=== PATIENT | male | born 1975 | race Caucasian/White ===

== ENCOUNTER 2018-03-06 22:00 | Emergency (ER) | payer SELFPAY ==
[~2018-03-06] VITALS: Ht 167.6 cm; Wt 83.7 kg
[2018-03-06 22:04] VITALS: Ht 167.6 cm; Wt 83.7 kg
[2018-03-07] MEDS ORDERED: DIPHTH/TET/ACEL PERTUSS (ADULT) 0.5 ML VIAL IM* ONE (01:30)
[2018-03-07] MEDS ORDERED: CEFAZOLIN 1 GM INJ IM ONE (01:30)
[2018-03-07] MEDS ORDERED: HYDROCODONE/APAP (5/325) TAB PO ONE (01:30)
[2018-03-07] MEDS ORDERED: HYDR-4011 PO (03:00)
[2018-03-07] MEDS ORDERED: CEPH-443 PO (03:00)
[2018-03-07] MEDS ORDERED: IBUP-1542 PO (03:00)
--- NOTE | 2018-03-07 03:16 | ERD ---
ER Documentation Chief Complaint Chief Complaint puncture wound left hand, working with screwdriver about 30 minutes ago HPI 42-year-old male patient with no significant past medical history presents to the ED, right-handed with a puncture wound to his left hand. Patient reports that he was working with a screwdriver at 8 PM. States that he still has sensation intact. Full range of motion. Denies any fever, chills, nausea, vomiting, diarrhea, neck stiffness. Patient reports that he is unsure of the exact date of his tetanus vaccine. ROS All systems reviewed and are negative except as per history of present illness. Medications Home Meds Active Scripts Hydrocodone/Acetaminophen (Hancock 5-325 Tablet) 1 Each Tablet, 1 TAB PO QHS PRN for PAIN, #5 TAB Prov:SID CAICEDO PA-C 03/07/18 Ibuprofen* (Motrin*) 600 Mg Tab, 600 MG PO Q6, #30 TAB Prov:SID CAICEDO PA-C 03/07/18 Cephalexin* (Keflex*) 500 Mg Capsule, 500 MG PO QID for 7 Days, CAP Prov:SID CAICEDO PA-C 03/07/18 Allergies Allergies: Coded Allergies: No Known Drug Allergies (Verified Allergy, Unknown, 03/06/18) PMhx/Soc Medical and Surgical Hx: pt denies Medical Hx, pt denies Surgical Hx Hx Alcohol Use: Yes Hx Substance Use: No Hx Tobacco Use: No Smoking Status: Never smoker FmHx Family History: No diabetes, No coronary disease Physical Exam Vitals Vital Signs Date Temp Pulse Resp B/P (MAP) Pulse Ox O2 O2 Flow FiO2 Time Delivery Rate 03/07/18 98.0 69 18 108/67 100 Room Air 03:19 (81) 03/06/18 97.9 84 18 131/62 99 22:04 (85) Physical Exam Const: Sxt-rjv-emeemlieh, well-nourished. In no acute distress. Head: Atraumatic, normocephalic Eyes: Normal Conjunctiva without injection ENT: Normal external ear, nose and mouth. Neck: Full range of motion. No meningismus. Resp: Clear to auscultation bilaterally. No wheezing, rhonchi, rales, or crackles. No accessory muscle use. No retractions. Cardio: Regular rate and rhythm, no murmurs Skin: No petechiae or rashes Back: No midline tenderness. No CVA tenderness. Ext: No cyanosis, or edema. Cap refill less than 2 seconds. Distal pulses intact bilaterally. 2 mm puncture wound noted on the palmar aspect of patient's left hand. No erythema, edema. No hemorrhaging noted. No visualization of any bony prominences. No visualization of any tendon ligaments. Neur: Awake and alert. Normal gait and coordination. Muscle strength 5/5. Sensation intact bilaterally. Psych: Normal Mood and Affect Results 24 hrs Current Medications Medications Dose Sig/Prosper Start Time Status Last (Trade) Ordered Route PRN Stop Time Admin Dose Reason Admin Diphtheria/ 0.5 ml ONCE ONCE 03/07/18 DC 03/07/18 Tetanus/Acell IM* 01:30 01:24 Pertussis 03/07/18 01:31 (Adacel) 1 tab ONCE ONCE 03/07/18 DC 03/07/18 Acetaminophen PO 01:30 01:23 / 03/07/18 01:31 Hydrocodone Bitart (Hancock (5/325)) Cefazolin 1 gm ONCE ONCE 03/07/18 DC 03/07/18 Sodium IM 01:30 01:23 (Ancef) 03/07/18 01:31 Procedures/MDM 42-year-old male patient with no significant past medical history presents to ED complaining of left hand wound injury. Patient is afebrile and nontoxic- appearing. A left hand x-ray was ordered to further evaluate patient. Patient's Tdap updated. Ancef 1 g administered to patient. IMPRESSION: No acute findings. Patient has a puncture wound. No indication for suture placement at this time. Well healing. Patient will be treated on an outpatient basis with antibiotics and to return for any increased redness, swelling, purulent discharge, etc. Patient's extremity symptoms have stabilized while they have been evaluated in the department and are appropriate for outpatient follow up. No evidence of fractures, dislocations, compartment syndrome, neurologic injury, vascular injury, open joint, open fracture, tendon laceration, septic arthritis, osteomyelitis, DVT, foreign body, or other emergent conditions. Diagnosis: Puncture Wound Discharge medications: Hancock, Ibuprofen, Keflex Follow up with primary care physician in 1-2 days. Instructed patient to return to the ED sooner for any worsening symptoms. Patient's questions were answered. Patient is hemodynamically stable. Patient understood and agreed with discharge plan. Patient discharged stable. Disclaimer: Inadvertent spelling and grammatical errors are likely due to EHR/dictation software use and do not reflect on the overall quality of patient care. Also, please note that the electronic time recorded on this note does not necessarily reflect the actual time of the patient encounter. Departure Diagnosis: Primary Impression: Laceration Condition: Stable Patient Instructions: Puncture Wound, General Referrals: [facility] YOU HAVE RECEIVED A MEDICAL SCREENING EXAM AND THE RESULTS INDICATE THAT YOU DO NOT HAVE A CONDITION THAT REQUIRES URGENT TREATMENT IN THE EMERGENCY DEPARTMENT. FURTHER EVALUATION AND TREATMENT OF YOUR CONDITION CAN WAIT UNTIL YOU ARE SEEN IN YOUR DOCTORS OFFICE WITHIN THE NEXT 1-2 DAYS. IT IS YOUR RESPONSIBILITY TO MAKE AN APPOINTMENT FOR FOLOW-UP CARE. IF YOU HAVE A PRIMARY DOCTOR --you should call your primary doctor and schedule an appointment IF YOU DO NOT HAVE A PRIMARY DOCTOR YOU CAN CALL OUR PHYSICIAN REFERRAL HOTLINE AT IF YOU CAN NOT AFFORD TO SEE A PHYSICIAN YOU CAN CHOSE FROM THE FOLLOW[facility] [address] [facility] [address] [facility] [facility] [address] [facility] [address] [facility] [address] [facility]. [facility]. [address] [facility]. [facility] YOU HAVE RECEIVED A MEDICAL SCREENING EXAM AND THE RESULTS INDICATE THAT YOU DO NOT HAVE A CONDITION THAT REQUIRES URGENT TREATMENT IN THE EMERGENCY DEPARTMENT. FURTHER EVALUATION AND TREATMENT OF YOUR CONDITION CAN WAIT UNTIL YOU ARE SEEN IN YOUR DOCTORS OFFICE WITHIN THE NEXT 1-2 DAYS. IT IS YOUR RESPONSIBILITY TO MAKE AN APPOINTMENT FOR FOLOW-UP CARE. IF YOU HAVE A PRIMARY DOCTOR --you should call your primary doctor and schedule and appointment IF YOU DO NOT HAVE A PRIMARY DOCTOR YOU CAN CALL OUR PHYSICIAN REFERRAL HOTLINE AT . IF YOU CAN NOT AFFORD TO SEE A PHYSICIAN YOU CAN CHOSE FROM THE FOLLOWING [facility]: [facility] [address] [place] [address] [facility] [address] [place] [address] [facility] [address] [place] [address] [facility] URGENT CARE/SPECIALTIES Additional Instructions: Llame al doctor MAANA y linda mali ZOEY PARA DENTRO DE 2-3 STOREY.Dgale a la secretaria que nosotros le instruimos hacer esta zoey.Avise o llame si pereyra condicin se empeora antes de la zoey. Regresa aqui si peor o no mejor. WOUND CHECK:CONSULTE A PEREYRA MDICO EN 2 maradiaga para nessa PEREYRA HERIDA. SID CAICEDO PA-C Mar 07, 2018 03:16
[2018-03-07 03:19] VITALS: BP 108/67; PULSE 69; RESP 18
== END 2018-03-07 03:23 | disposition home or self-care (01) ==
LOC: FTE 22:00
DX: S61.432A Puncture wound without foreign body of left hand, initial encounter (principal); W26.8XXA Contact with other sharp object(s), not elsewhere classified, initial encounter; Y92.89 Other specified places as the place of occurrence of the external cause; Z23 Encounter for immunization
CPT/HCPCS: 73130; 90471; 90715; 96372; 99284; J0690

== ENCOUNTER 2018-04-09 19:31 | Emergency (ER) | payer MEDICAID ==
[~2018-04-09] VITALS: Ht 177.8 cm; Wt 85.8 kg
[~2018-04-09 19:31] MED LIST: CEPH-443 PO; HYDR-4011 PO; IBUP-1542 PO
[2018-04-09 19:39] VITALS: Ht 177.8 cm; Wt 85.8 kg
[2018-04-09] MEDS ORDERED: ACETAMINOPHEN 500 MG TAB PO STA (22:53)
[2018-04-09] MEDS ORDERED: KETOROLAC 30 MG INJ IM STA (22:53)
[2018-04-10] MEDS ORDERED: NAPR-985 PO (01:34)
--- NOTE | 2018-04-10 01:45 | ERD ---
ER Documentation Chief Complaint Chief Complaint fell while snow boarding yesterday, c/o left rib cage pain HPI 42 year-old [male] coming in today with Chief Complaint: Rib pain History of Present Illness: accompanying patient to the ER today with complaint of rib pain since yesterday. Patient reports snowboarding accident. Associated symptoms include pain with breathing and cough. Denies any other associated symptoms no respiratory distress. Denies at home use of medications for symptoms. Denies loss of consciousness. Review of systems: All systems were reviewed and are negative except for what is indicated in the history of present illness. Past Medical History: [Negative for hypertension, diabetes or other medical problems] Social History: [Patient denies tobacco, alcohol, elicit drug use] Medications: [None] Allergies: [NKDA] Social Concerns: Denies ROS All systems reviewed and are negative except as per history of present illness. Medications Home Meds Active Scripts Naproxen* (Naprosyn*) 500 Mg Tablet, 500 MG PO BID PRN for PAIN AND/OR INFLAMMATION, #30 TAB Prov:KRISTINA HILL NP 04/10/18 Hydrocodone/Acetaminophen (Russell 5-325 Tablet) 1 Each Tablet, 1 TAB PO QHS PRN for PAIN, #5 TAB Prov:SID CAICEDO PA-C 03/07/18 Ibuprofen* (Motrin*) 600 Mg Tab, 600 MG PO Q6, #30 TAB Prov:SID CAICEDO PA-C 03/07/18 Cephalexin* (Keflex*) 500 Mg Capsule, 500 MG PO QID for 7 Days, CAP Prov:SID CAICEDO PA-C 03/07/18 Allergies Allergies: Coded Allergies: No Known Drug Allergies (Verified Allergy, Unknown, 03/06/18) PMhx/Soc Medical and Surgical Hx: pt denies Medical Hx, pt denies Surgical Hx History of Surgery: No Anesthesia Reaction: No Hx Neurological Disorder: No Hx Respiratory Disorders: No Hx Cardiac Disorders: No Hx Psychiatric Problems: No Hx Miscellaneous Medical Probl: No Hx Alcohol Use: Yes Hx Substance Use: No Hx Tobacco Use: No Physical Exam Vitals Physical Exam Const: No acute distress Head: Atraumatic Eyes: Normal Conjunctiva ENT: Normal External Ears, Nose and Mouth. Neck: Full range of motion. No meningismus. Resp: Clear to auscultation bilaterally Cardio: Regular rate and rhythm, no murmurs Abd: Soft, non tender, non distended. Normal bowel sounds Skin: No petechiae or rashes Back: No midline or flank tenderness Ext: No cyanosis, or edema Neur: Awake and alert Psych: Normal Mood and Affect Results 24 hrs Current Medications Medications Dose Sig/Prosper Start Time Status Last (Trade) Ordered Route PRN Stop Time Admin Dose Reason Admin Ketorolac 30 mg ONCE STAT 04/09/18 DC 04/09/18 Tromethamine IM 22:53 23:00 (Toradol) 04/09/18 22:54 1,000 mg ONCE STAT 04/09/18 DC 04/09/18 Acetaminophen PO 22:53 23:00 (Tylenol 04/09/18 22:54 Tab) Procedures/MDM ED course includes a thorough examination and history. The course includes me dication; Toradol for inflammation and acetaminophen for pain Low suspicion for life-threatening medical emergency. Otherwise healthy patient presenting with constellation of symptoms likely representing uncomplicated rib contusion as characterized by history, physical exam findings [radiologic]. Negative chest x-ray. Negative rib x-ray No respiratory distress, otherwise relatively well appearing and nontoxic. Patient educated on diagnoses, prescriptions for Naprosyn, follow-up care, return precautions. Strict return precautions given for worsening condition; questions answered discharge. Disposition for discharge with followup in 2-3 days with PCP/clinic. Departure Diagnosis: Primary Impression: Contusion of rib on left side Encounter type: initial encounter Qualified Codes: S20.212A - Contusion of left front wall of thorax, initial encounter Condition: Stable Patient Instructions: Rib Contusion [facility] Usted se obrien hecho un examen mdico de control que le indica que no est en mali condicin que requiera tratamiento urgente en el Departamento de Emergencia. Un estudio ms profundo y el tratamiento de el condicin pueden esperar sin ningn riesgo hasta que usted sea atendida/o en el consultorio de el mdico o mali clnica. Es responsabilidad suya arreglar mali krys para el seguimiento del annabel. MANEJO DE CONDICIONES NO URGENTES EN EL FUTURO 1) Si usted tiene un mdico de atencin primaria: Usted debera llamar a el mdico de atencin primaria antes de venir al departamento de emergencia. Despus de las horas de consultorio, el doctor o el asociado/a est disponible por telfono. El mdico o enfermero de mary en el servicio telefnico puede asesorarle por ann-marie medio para atender el problema, o annabel contrario se puede programar mali krys. 2) Si usted no tiene un mdico de atencin primaria: Llame al mdico o clnica de referencia que aparece abajo adali las horas de consultorio para hacer mali krys para que le vean. CLINICAS: [facility] [phone] [facility] [phone] [address] [facility] [phone] [address] [facility] [facility] [phone] [address] [facility] [place] [place] [id number] [phone] [facility]. [phone] [address] [facility]. [facility] () Usted se obrien hecho un examen mdico de control que le indica que no est en mali condicin que requiera tratamiento urgente en el Departamento de Emergencia. Un estudio ms profundo y el tratamiento de el condicin pueden esperar sin ningn riesgo hasta que usted sea atendida/o en el consultorio de el mdico o mali clnica. Es responsabilidad suya arreglar mali krys para el seguimiento del annabel. MANEJO DE CONDICIONES NO URGENTES EN EL FUTURO 1) Si usted tiene un mdico de atencin primaria: Usted debera llamar a el mdico de atencin primaria antes de venir al departamento de emergencia. Despus de las horas de consultorio, el doctor o el asociado/a est disponible por telfono. El mdico o enfermero de mary en el servicio telefnico puede asesorarle por ann-marie medio para atender el problema, o annabel contrario se puede programar mali krys. 2) Si usted no tiene un mdico de atencin primaria: Llame al mdico o condado institucions de referencia que aparece abajo adali las horas de consultorio para hacer mali krys para que le vean. SI USTED NO PUEDE PAGAR PARA RIAN UN MEDICO puede ir a: [facility] [address] [place] [address] [facility] [address] [place], [place] [id number] [place] [address] Network [address] [place] [address] [facility] [facility] [address] [place] [address] Additional Instructions: Call your primary care doctor TOMORROW for an appointment during the next 2-3 days.See the doctor sooner or return here if your condition worsens before your appointment time. Return to hospital if signs of increased pain, chest pain, palpitations, respiratory distress. KRISTINA HILL NP Apr 10, 2018 01:45
[2018-04-10 01:46] VITALS: BP 106/65; PULSE 66; RESP 16
--- NOTE | 2018-04-10 02:13 | ERD ---
ER Documentation Chief Complaint Chief Complaint fell while snow boarding yesterday, c/o left rib cage pain HPI 42 year-old [male] coming in today with Chief Complaint: Rib pain History of Present Illness: accompanying patient to the ER today with complaint of rib pain since yesterday. Patient reports snowboarding accident. Associated symptoms include pain with breathing and cough. Denies any other associated symptoms no respiratory distress. Denies at home use of medications for symptoms. Denies loss of consciousness. Review of systems: All systems were reviewed and are negative except for what is indicated in the history of present illness. Past Medical History: [Negative for hypertension, diabetes or other medical problems] Social History: [Patient denies tobacco, alcohol, elicit drug use] Medications: [None] Allergies: [NKDA] Social Concerns: Denies ROS All systems reviewed and are negative except as per history of present illness. Medications Home Meds Active Scripts Naproxen* (Naprosyn*) 500 Mg Tablet, 500 MG PO BID PRN for PAIN AND/OR INFLAMMATION, #30 TAB Prov:KRISTINA HILL NP 04/10/18 Hydrocodone/Acetaminophen (Lingle 5-325 Tablet) 1 Each Tablet, 1 TAB PO QHS PRN for PAIN, #5 TAB Prov:SID CAICEDO PA-C 03/07/18 Ibuprofen* (Motrin*) 600 Mg Tab, 600 MG PO Q6, #30 TAB Prov:SID CAICEDO PA-C 03/07/18 Cephalexin* (Keflex*) 500 Mg Capsule, 500 MG PO QID for 7 Days, CAP Prov:SID CAICEDO PA-C 03/07/18 Allergies Allergies: Coded Allergies: No Known Drug Allergies (Verified Allergy, Unknown, 03/06/18) PMhx/Soc Medical and Surgical Hx: pt denies Medical Hx, pt denies Surgical Hx History of Surgery: No Anesthesia Reaction: No Hx Neurological Disorder: No Hx Respiratory Disorders: No Hx Cardiac Disorders: No Hx Psychiatric Problems: No Hx Miscellaneous Medical Probl: No Hx Alcohol Use: Yes Hx Substance Use: No Hx Tobacco Use: No FmHx Family History: No diabetes, No coronary disease Physical Exam Vitals Vital Signs Date Temp Pulse Resp B/P (MAP) Pulse Ox O2 O2 Flow FiO2 Time Delivery Rate 04/10/18 98.1 66 16 106/65 100 Room Air 01:46 (79) 04/09/18 98.3 87 18 118/58 100 19:39 (78) Physical Exam Const: No acute distress. He is speaking in clear sentences without diffic ulty Head: Atraumatic Eyes: Normal Conjunctiva ENT: Normal External Ears, Nose and Mouth. Neck: Full range of motion. No meningismus. Resp: Clear to auscultation bilaterally; tender to palpation to left ribs Cardio: Regular rate and rhythm, no murmurs Abd: Soft, non tender, non distended. Normal bowel sounds Skin: No petechiae or rashes Back: No midline or flank tenderness Ext: No cyanosis, or edema Neur: Awake and alert. No neuro deficits Psych: Normal Mood and Affect Results 24 hrs Current Medications Medications Dose Sig/Prosper Start Time Status Last (Trade) Ordered Route PRN Stop Time Admin Dose Reason Admin Ketorolac 30 mg ONCE STAT 04/09/18 DC 04/09/18 Tromethamine IM 22:53 23:00 (Toradol) 04/09/18 22:54 1,000 mg ONCE STAT 04/09/18 DC 04/09/18 Acetaminophen PO 22:53 23:00 (Tylenol 04/09/18 22:54 Tab) Procedures/MDM ED course includes a thorough examination and history. The course includes medication; Toradol for inflammation and acetaminophen for pain Low suspicion for life-threatening medical emergency. Otherwise healthy patient presenting with constellation of symptoms likely representing uncomplicated rib contusion as characterized by history, physical exam findings [radiologic]. Negative chest x-ray. Negative rib x-ray No respiratory distress, otherwise relatively well appearing and nontoxic. Patient educated on diagnoses, prescriptions for Naprosyn, follow-up care, return precautions. Strict return precautions given for worsening condition; questions answered discharge. Disposition for discharge with followup in 2-3 days with PCP/clinic. Departure Diagnosis: Primary Impression: Contusion of rib on left side Encounter type: initial encounter Qualified Codes: S20.212A - Contusion of left front wall of thorax, initial encounter Condition: Stable Patient Instructions: Rib Contusion [facility] Usted se obrien hecho un examen mdico de control que le indica que no est en mali condicin que requiera tratamiento urgente en el Departamento de Emergencia. Un estudio ms profundo y el tratamiento de el condicin pueden esperar sin ningn riesgo hasta que usted sea atendida/o en el consultorio de el mdico o mali clnica. Es responsabilidad suya arreglar mali krys para el seguimiento del annabel. MANEJO DE CONDICIONES NO URGENTES EN EL FUTURO 1) Si usted tiene un mdico de atencin primaria: Usted debera llamar a el mdico de atencin primaria antes de venir al departamento de emergencia. Despus de las horas de consultorio, el doctor o el asociado/a est disponible por telfono. El mdico o enfermero de mary en el servicio telefnico puede asesorarle por ann-marie medio para atender el problema, o annabel contrario se puede programar mali krys. 2) Si usted no tiene un mdico de atencin primaria: Llame al mdico o clnica de referencia que aparece abajo adali las horas de consultorio para hacer mali krys para que le vean. CLINICAS: [facility] [phone] [address] [facility] [phone] [address] [facility]. [facility] [phone] [facility] [facility] [phone] [address] [facility] [place] [address] [phone] [facility]. [phone] [address] . [facility] () Usted se obrien hecho un examen mdico de control que le indica que no est en mali condicin que requiera tratamiento urgente en el Departamento de Emergencia. Un estudio ms profundo y el tratamiento de el condicin pueden esperar sin ningn riesgo hasta que usted sea atendida/o en el consultorio de el mdico o mali clnica. Es responsabilidad suya arreglar mali krys para el seguimiento del annabel. MANEJO DE CONDICIONES NO URGENTES EN EL FUTURO 1) Si usted tiene un mdico de atencin primaria: Usted debera llamar a el mdico de atencin primaria antes de venir al departamento de emergencia. Despus de las horas de consultorio, el doctor o el asociado/a est disponible por telfono. El mdico o enfermero de mary en el servicio telefnico puede asesorarle por ann-marie medio para atender el problema, o annabel contrario se puede programar mali krys. 2) Si usted no tiene un mdico de atencin primaria: Llame al mdico o condado institucions de referencia que aparece abajo adali las horas de consultorio para hacer mali krys para que le vean. SI USTED NO PUEDE PAGAR PARA RIAN UN MEDICO puede ir a: [facility] [address] [place] [address] [facility] [address] [place] [address] [facility] Network [address] [place] [address] PARA [facility] [address] [place], [place] [id number] Additional Instructions: Call your primary care doctor TOMORROW for an appointment during the next 2-3 days.See the doctor sooner or return here if your condition worsens before your appointment time. Return to hospital if signs of increased pain, chest pain, palpitations, respiratory distress. KRISTINA HILL NP Apr 10, 2018 02:13
== END 2018-04-10 01:47 | disposition home or self-care (01) ==
LOC: FTE 19:31
DX: S20.212A Contusion of left front wall of thorax, initial encounter (principal); V00.311A Fall from snowboard, initial encounter; Y92.9 Unspecified place or not applicable
CPT/HCPCS: 71046; 71100; 96372; J1885; Z7502; Z7610